=== PATIENT | female | born 1990 | race Caucasian/White ===

== ENCOUNTER 2019-09-29 20:03 | Emergency (ER) | payer SELFPAY ==
--- OUTSIDE RECORDS SUMMARY | 2019-09-29 20:05 | XMS REPORT | Continuity of Care Document ---
:1990 Author Organization [facility] Address [address] [place] [address] Dr. Thakur [address] [place] [id number] Care Team Providers Name Role Phone Unavailable Unavailable Unavailable Problems This patient has no known problems. Allergies, Adverse Reactions, Alerts This patient has no known allergies or adverse reactions. Medications This patient has no known medications. Procedures This patient has no known procedures. Results This patient has no known results.
[2019-09-29 20:50] LABS: Urine Blood NEGATIVE (NEG); Urine Glucose NEGATIVE (NEG); Urine Protein NEGATIVE (NEG)
--- NOTE | 2019-09-29 22:06 | ER ---
Nurse's Notes [facility] Name: Kourtney Dave Age: 29 yrs Sex: Female : 1990 Arrival Date: 09/29/2019 Time: 20:04 Bed 6 Private MD: Diagnosis: Abdominal tenderness;Constipation;Ileus, unspecified Presentation: 09/28 20:12 Chief complaint: Patient states: Had a UTI in July, abx completed. Once completed ca1 started burning again with urination, now on Macrobid. Reports low back pain and constipation. Last good BM x 2 weeks. Feels bloated and c/o abdl pain. Reports nausea. Coronavirus screen: Client denies travel out of the [place] in the last 14 days. At this time, the client does not indicate any symptoms associated with coronavirus-19. Ebola Screen: Patient negative for fever greater than or equal to 101.5 degrees Fahrenheit, and additional compatible Ebola Virus Disease symptoms Patient denies exposure to infectious person. Patient denies travel to an Ebola-affected area in the 21 days before illness onset. No symptoms or risks identified at this time. Initial Sepsis Screen: Does the patient meet any 2 criteria? No. Patient's initial sepsis screen is negative. Does the patient have a suspected source of infection? No. Patient's initial sepsis screen is negative. Risk Assessment: Do you want to hurt yourself or someone else? Patient reports no desire to harm self or others. Onset of symptoms was September 29, 2019. 20:12 Method Of Arrival: Ambulatory ca1 20:12 Acuity: CINDY 3 ca1 Triage Assessment: 20:17 General: Appears in no apparent distress. comfortable, Behavior is calm, cooperative, ca1 appropriate for age. 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 - Social history:: Smoking status: Patient denies any tobacco usage or history of. - Family history:: not pertinent. Screenin:56 Abuse screen: Denies threats or abuse. Nutritional screening: No deficits noted. ea Tuberculosis screening: No symptoms or risk factors identified. Fall Risk None identified. Assessment: 21:55 General: Appears in no apparent distress. Behavior is appropriate for age. Pain: ea Complains of pain in abdomen. Neuro: Level of Consciousness is awake, alert, obeys commands, Oriented to person, place, time, situation. Respiratory: Airway is patent Respiratory effort is even, unlabored, Respiratory pattern is regular, symmetrical. GI: Bowel sounds present X 4 quads. Abd is soft and non tender X 4 quads. Derm: Skin is pink, warm \T\ dry. 23:48 Reassessment: Patient and/or family updated on plan of care and expected duration. Pain ea level reassessed. Patient is alert, oriented x 3, equal unlabored respirations, skin warm/dry/pink. Awaiting on CT results. 23:55 Reassessment: Patient and/or family updated on plan of care and expected duration. Pain ea level reassessed. Patient is alert, oriented x 3, equal unlabored respirations, skin warm/dry/pink. Discharge instruction given to patient, verbalized the understanding of instruction. Pt left ED ambulatory tolerating well. Vital Signs: 20:12 BP 129 / 70; Pulse 104; Resp 17 S; Temp 99.2(O); Pulse Ox 100% on R/A; Weight 78.02 kg ca1 (R); Height 5 ft. 5 in. (165.10 cm) (R); 22:21 BP 111 / 54; Pulse 90; Resp 18; Pulse Ox 99% on R/A; ea 23:30 BP 120 / 62; Pulse 88; Resp 18; Pulse Ox 98% ; ea 20:12 Body Mass Index 28.62 (78.02 kg, 165.10 cm) ca1 ED Course: 20:04 Patient arrived in ED. am2 20:15 Triage completed. ca1 20:16 Arm band placed on right wrist. ca1 20:46 Jose Cruz Herron MD is Attending Physician. miya 21:00 Cathy Cosme, LEANDER is Primary Nurse. ea 21:56 Patient has correct armband on for positive identification. Bed in low position. Call ea light in reach. Side rails up X2. 22:05 Adi Stanley MD is Referral Physician. miya 22:06 Abdomen 1 View (KUB) XRAY In Process Unspecified. EDMS 22:20 Inserted saline lock: 20 gauge in right antecubital area, using aseptic technique. ea Blood collected. 22:48 CT Abd/Pelvis - IV Contrast Only In Process Unspecified. EDMS 23:30 Javier Lopez MD is Referral Physician. [facility] 23:55 No provider procedures requiring assistance completed. IV discontinued, intact, ea bleeding controlled, No redness/swelling at site. Pressure dressing applied. Administered Medications: 22:00 Drug: Lactulose 30 grams Volume: 45 ml; Route: PO; ea 23:56 Follow up: Response: No adverse reaction ea 22:20 Drug: NS 0.9% 1000 ml Route: IV; Rate: 1 bolus; Site: right antecubital; ea 23:56 Follow up: Response: No adverse reaction; IV Status: Completed infusion; IV Intake: ea 1000ml Intake: 23:56 IV: 1000ml; Total: 1000ml. ea Outcome: 22:05 Discharge ordered by . [facility] 23:55 Discharged to home ambulatory. ea 23:55 Condition: stable 23:55 Discharge instructions given to patient, Instructed on discharge instructions, follow up and referral plans. medication usage, Demonstrated understanding of instructions, follow-up care, medications, Prescriptions given X 3. 23:56 Patient left the ED. ea Signatures: Dispatcher [employer] Jose Cruz Severino MD MD cha Moreno, Amanda am2 Cathy Cosme, RN RN Pauline Espinoza RN RN ca1
--- NOTE | 2019-09-29 22:06 | EDPHYS ---
Physician Documentation [facility] Name: Kourtney Dave Age: 29 yrs Sex: Female : 1990 Arrival Date: 09/29/2019 Time: 20:04 Bed 6 Private MD: ED Physician Jose Cruz Herron HPI: 09/28 22:00 This 29 yrs old Female presents to ER via Ambulatory with complaints of miya Urinary Problem, Abdominal Pain, Constipation. 22:00 The patient presents with abdominal pain in the upper abdomen, in the lower abdomen, miya abdominal distention in the upper abdomen, in the lower abdomen. Onset: The symptoms/episode began/occurred 3 week(s) ago. The patient presents with urinary symptoms, frequency. Onset: The symptoms/episode began/occurred 3 week(s) ago. Modifying factors: The symptoms are alleviated by nothing, the symptoms are aggravated by constipation. Associated signs and symptoms: The patient has no apparent associated signs or symptoms. Severity of symptoms: At their worst the symptoms were mild, in the emergency department the symptoms are unchanged. 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 - Social history:: Smoking status: Patient denies any tobacco usage or history of. - Family history:: not pertinent. ROS: 22:00 Constitutional: Negative for fever, chills, and weight loss, Eyes: Negative for injury, miya pain, redness, and discharge, ENT: Negative for injury, pain, and discharge, Neck: Negative for injury, pain, and swelling, Cardiovascular: Negative for chest pain, palpitations, and edema, Respiratory: Negative for shortness of breath, cough, wheezing, and pleuritic chest pain, Back: Negative for injury and pain, : Negative for injury, bleeding, discharge, and swelling, MS/Extremity: Negative for injury and deformity, Skin: Negative for injury, rash, and discoloration, Neuro: Negative for headache, weakness, numbness, tingling, and seizure, Psych: Negative for depression, anxiety, suicide ideation, homicidal ideation, and hallucinations, Allergy/Immunology: Negative for hives, rash, and allergies, Endocrine: Negative for neck swelling, polydipsia, polyuria, polyphagia, and marked weight changes, Hematologic/Lymphatic: Negative for swollen nodes, abnormal bleeding, and unusual bruising. 22:00 Abdomen/GI: Positive for abdominal pain, constipation. Exam: 22:00 Constitutional: This is a well developed, well nourished patient who is awake, alert, miya and in no acute distress. Head/Face: Normocephalic, atraumatic. Eyes: Pupils equal round and reactive to light, extra-ocular motions intact. Lids and lashes normal. Conjunctiva and sclera are non-icteric and not injected. Cornea within normal limits. Periorbital areas with no swelling, redness, or edema. ENT: Nares patent. No nasal discharge, no septal abnormalities noted. Tympanic membranes are normal and external auditory canals are clear. Oropharynx with no redness, swelling, or masses, exudates, or evidence of obstruction, uvula midline. Mucous membranes moist. Neck: Trachea midline, no thyromegaly or masses palpated, and no cervical lymphadenopathy. Supple, full range of motion without nuchal rigidity, or vertebral point tenderness. No Meningismus. Chest/axilla: Normal chest wall appearance and motion. Nontender with no deformity. No lesions are appreciated. Cardiovascular: Regular rate and rhythm with a normal S1 and S2. No gallops, murmurs, or rubs. Normal PMI, no JVD. No pulse deficits. Respiratory: Lungs have equal breath sounds bilaterally, clear to auscultation and percussion. No rales, rhonchi or wheezes noted. No increased work of breathing, no retractions or nasal flaring. Abdomen/GI: Soft, non-tender, with normal bowel sounds. No distension or tympany. No guarding or rebound. No evidence of tenderness throughout. Back: No spinal tenderness. No costovertebral tenderness. Full range of motion. Skin: Warm, dry with normal turgor. Normal color with no rashes, no lesions, and no evidence of cellulitis. MS/ Extremity: Pulses equal, no cyanosis. Neurovascular intact. Full, normal range of motion. Neuro: Awake and alert, GCS 15, oriented to person, place, time, and situation. Cranial nerves II-XII grossly intact. Motor strength 5/5 in all extremities. Sensory grossly intact. Cerebellar exam normal. Normal gait. Psych: Awake, alert, with orientation to person, place and time. Behavior, mood, and affect are within normal limits. 22:00 Musculoskeletal/extremity: DVT Exam: No signs of deep vein thrombosis. no pain, no swelling, no tenderness, negative Homans' sign noted on exam, no appreciated bluish discoloration, no erythema, no increased warmth. Vital Signs: 20:12 BP 129 / 70; Pulse 104; Resp 17 S; Temp 99.2(O); Pulse Ox 100% on R/A; Weight 78.02 kg ca1 (R); Height 5 ft. 5 in. (165.10 cm) (R); 22:21 BP 111 / 54; Pulse 90; Resp 18; Pulse Ox 99% on R/A; ea 23:30 BP 120 / 62; Pulse 88; Resp 18; Pulse Ox 98% ; ea 20:12 Body Mass Index 28.62 (78.02 kg, 165.10 cm) ca1 MDM: 20:46 Patient medically screened. miya 22:02 Data reviewed: vital signs, nurses notes, lab test result(s), urinalysis, radiologic miya studies, plain films. 22:03 Differential diagnosis: nonspecific abdominal pain, urinary tract infection, bowel miya obstruction, Dysmenorrhea, non-specific abd pain. Data interpreted: school lunch monitor: not applicable for this patient encounter. rate is 104 beats/min, Pulse oximetry: on room air is 100 %. Test interpretation: by ED physician or midlevel provider: plain radiologic studies. 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 ED course: ua and kub results explained, pt explained the importance of follow up. 09/28 20:38 Order name: Urine Dipstick--Ancillary (enter results); Complete Time: 21:55 ar5 09/28 20:38 Order name: Urine --Ancillary (enter results); Complete Time: 21:55 ar5 09/28 21:40 Order name: Abdomen 1 View (KUB) XRAY; Complete Time: 23:29 miya 09/28 22:08 Order name: CBC with Diff; Complete Time: 23:29 miya 09/28 22:08 Order name: Comprehensive Metabolic Panel; Complete Time: 23:29 miya 09/28 23:01 Order name: CREATININE WHOLE BLOOD; Complete Time: 23:29 EDMS 09/28 20:43 Order name: Urine Dipstick-Ancillary (obtain specimen); Complete Time: 20:43 ca1 09/28 20:43 Order name: Urine Test (obtain specimen); Complete Time: 20:43 ca1 09/28 22:08 Order name: CT Abd/Pelvis - IV Contrast Only miya Administered Medications: 22:00 Drug: Lactulose 30 grams Volume: 45 ml; Route: PO; ea 23:56 Follow up: Response: No adverse reaction ea 22:20 Drug: NS 0.9% 1000 ml Route: IV; Rate: 1 bolus; Site: right antecubital; ea 23:56 Follow up: Response: No adverse reaction; IV Status: Completed infusion; IV Intake: ea 1000ml Disposition: 09/29/19 22:05 Discharged to Home. Impression: Abdominal tenderness, Constipation, Ileus, unspecified. - Condition is Stable. - Discharge Instructions: Abdominal Pain, Adult, Constipation, Adult, High-Fiber Diet, Constipation, Adult, Xxiu-rx-Klbo, Ileus, Abdominal Pain, Adult, Idch-pe-Xuma, Fiber Content in Foods. - Prescriptions for Bentyl 20 mg Oral Tablet - take 1 tablet by ORAL route every 6 hours As needed; 20 tablet. Lactulose 10 gram/15 mL Oral Solution - take 30 milliliter by ORAL route once daily; 300 milliliter. Zofran 4 mg Oral Tablet - take 1 tablet by ORAL route every 12 hours As needed; 20 tablet. - Medication Reconciliation Form, Thank You Letter, Antibiotic Education, Prescription Opioid Use form. - Follow up: Private Physician; When: 2 - 3 days; Reason: Recheck today's complaints, Re-evaluation by your physician. Follow up: Adi Stanley MD; When: 2 - 3 days; Reason: Recheck today's complaints, Re-evaluation by your physician. Follow up: Javier Lopez MD; When: 2 - 3 days; Reason: Recheck today's complaints, Re-evaluation by your physician. - Problem is new. - Symptoms have improved. Signatures: Dispatcher [employer] EDJose Cruz Iverson MD MD cha Antunez, Elena, RN RN ea Acob, Cheryl, RN RN ca1 Corrections: (The following items were deleted from the chart) 22:05 22:05 09/29/2019 22:05 Discharged to Home. Impression: Abdominal tenderness; miya Constipation. Condition is Stable. Forms are Medication Reconciliation Form, Thank You Letter, Antibiotic Education, Prescription Opioid Use. Follow up: Private Physician; When: 2 - 3 days; Reason: Recheck today's complaints, Re-evaluation by your physician. Problem is new. Symptoms have improved. miya 23:30 22:05 09/29/2019 22:05 Discharged to Home. Impression: Abdominal tenderness; miya Constipation. Condition is Stable. Forms are Medication Reconciliation Form, Thank You Letter, Antibiotic Education, Prescription Opioid Use. Follow up: Private Physician; When: 2 - 3 days; Reason: Recheck today's complaints, Re-evaluation by your physician. Follow up: Adi Stanley; When: 2 - 3 days; Reason: Recheck today's complaints, Re-evaluation by your physician. Problem is new. Symptoms have improved. miya 23:30 23:30 09/29/2019 22:05 Discharged to Home. Impression: Abdominal tenderness; miya Constipation; Ileus, unspecified. Condition is Stable. Discharge Instructions: Abdominal Pain, Adult, Constipation, Adult, Constipation, Adult, Giaa-dg-Fwsz, Abdominal Pain, Adult, Ilvr-el-Djhm, High-Fiber Diet, Fiber Content in Foods. Prescriptions for Bentyl 20 mg Oral Tablet - take 1 tablet by ORAL route every 6 hours As needed; 20 tablet, Lactulose 10 gram/15 mL Oral Solution - take 30 milliliter by ORAL route once daily; 300 milliliter. and Forms are Medication Reconciliation Form, Thank You Letter, Antibiotic Education, Prescription Opioid Use. Follow up: Private Physician; When: 2 - 3 days; Reason: Recheck today's complaints, Re-evaluation by your physician. Follow up: Adi Stanley; When: 2 - 3 days; Reason: Recheck today's complaints, Re-evaluation by your physician. Problem is new. Symptoms have improved. miya 23:56 23:30 09/29/2019 22:05 Discharged to Home. Impression: Abdominal tenderness; ea Constipation; Ileus, unspecified. Condition is Stable. Discharge Instructions: Abdominal Pain, Adult, Constipation, Adult, Constipation, Adult, Ipfv-mu-Mvgw, Abdominal Pain, Adult, Lzft-it-Rgdh, High-Fiber Diet, Fiber Content in Foods. Prescriptions for Bentyl 20 mg Oral Tablet - take 1 tablet by ORAL route every 6 hours As needed; 20 tablet, Lactulose 10 gram/15 mL Oral Solution - take 30 milliliter by ORAL route once daily; 300 milliliter. and Forms are Medication Reconciliation Form, Thank You Letter, Antibiotic Education, Prescription Opioid Use. Follow up: Private Physician; When: 2 - 3 days; Reason: Recheck today's complaints, Re-evaluation by your physician. Follow up: Adi Stanley; When: 2 - 3 days; Reason: Recheck today's complaints, Re-evaluation by your physician. Follow up: Javier Lopez; When: 2 - 3 days; Reason: Recheck today's complaints, Re-evaluation by your physician. Problem is new. Symptoms have improved. miya
[2019-09-29] MEDS ORDERED: LACTULOSE 20 GM/30 ML UCUP ONE (22:09)
[2019-09-29] MEDS ORDERED: NA CHLORIDE 0.9% 1,000 ML ONE (22:28)
--- NOTE | 2019-09-29 22:35 | RAD REPORT ---
EXAM DESCRIPTION: RAD - Abdomen 1 View (KUB) - 09/29/2019 10:05 pm CLINICAL HISTORY: ABD PAIN Pain COMPARISON: Abdomen Pelvis W Contrast dated 09/29/2019 FINDINGS: The bowel gas pattern is non-obstructive. No evidence of free air or pneumatosis. No suspi cious calcifications. No significant bony findings. Prominent fecal retention noted. IMPRESSION: Prominent fecal retention.
[2019-09-29 22:41] LABS: Absolute Lymphocytes (CBC) 2.1 K/uL (0.7-4.9); Basophils % 0.6 % (0-1.3); Hematocrit 38.7 % (36.0-45.0); MPV 9.5 fL (7.6-11.3); RBC Red Blood Cell Count 4.67 M/uL (3.86-4.86)
[2019-09-29 22:50] LABS: ALT/SGPT 19 U/L (12-78); AST/SGOT 12 U/L (15-37); Albumin 3.8 g/dL (3.4-5.0); Alkaline Phosphatase 88 U/L (45-117); BUN Blood Urea Nitrogen 11 mg/dL (7-18); Bicarbonate 29 mmol/L (21-32); Bilirubin Total 0.5 mg/dL (0.2-1.0); Glucose Level 86 mg/dL (74-106); Potassium 3.8 mmol/L (3.5-5.1); Protein, Total 7.8 g/dL (6.4-8.2); Sodium Level 140 mmol/L (136-145)
[2019-09-30 00:38] VITALS: TEMP 99.2
[2019-09-30 00:41] VITALS: BP 120/62; O2SAT 98
--- NOTE | 2019-10-01 09:01 | RAD REPORT ---
EXAM DESCRIPTION: CT ABDOMEN AND PELVIS WITH CONTRAST CLINICAL HISTORY: Lower abdominal pain. Constipation. Burning with urination. COMPARISON: None Available. TECHNIQUE: CT of the abdomen and pelvis performed following IV administration of iodinated contras t.. FINDINGS: Lung Bases: The visualized lung bases are clear. Bones: No destructive bone lesions identified. Abdomen: Liver: The liver has normal size and density. No intrahepatic biliary dilatation. Gallbladder: No calcified gallstones. Spleen, Pancreas, and Adrenal Glands: The spleen, pancreas, and adrenal glands are unremarkable. Kidneys: No hydronephrosis or obstructing calculus. Vasculature: The aorta and IVC have normal caliber and position. The portal vein is patent. The pro ximal visceral and renal arteries are patent. Stomach: The stomach and duodenum have normal course. Other: No free intraperitoneal air. No free fluid or lymphadenopathy. Small fat-containing umbili liz hernia. Pelvis: Bladder: Urinary bladder is unremarkable. Bowel: Mild prominence of proximal small bowel with mild distal decompression and no definite trans ition point. Appendix: Normal appendix. Pelvis: Uterus is not enlarged. IMPRESSION: 1. Mildly prominent loops of proximal small bowel without definite transition point. Fin dings most compatible with ileus/enteritis. This exam was performed according to our departmental dose-optimization program, which includes autom ated exposure control, adjustment of the mA and/or kV according to patient size and/or use of iterati ve reconstruction technique. Electronically signed by: Ryan Luis 09/29/2019 11:02 PM CDT Due to temporary technical issues with the PACS/Fluency reporting system, reports are being signed by the in house radiologist without review as a courtesy to ensure prompt reporting. The interpreting r adiologist is fully responsible for the content of the report.
== END 2019-09-29 23:56 | disposition home or self-care (01) ==
LOC: ER 20:03
DX: K59.00 Constipation, unspecified (principal); K56.7 Ileus, unspecified
CPT/HCPCS: 36415; 74018; 74177; 80053; 81003; 81025; 82565; 85025; J7030; Q9967

== ENCOUNTER 2021-08-20 13:48 | Emergency (ER) | payer SELFPAY ==
--- NOTE | 2021-08-20 15:26 | ER ---
Nurse's Notes [facility] Name: Kourtney Dave Age: 31 yrs Sex: Female : 1990 Arrival Date: 08/20/2021 Time: 13:50 Bed 11 Private MD: Diagnosis: Acute tonsillitis, unspecified Presentation: 08/20 13:56 Chief complaint: Patient states: I have been feeling sick for the past 4 days, sore jg9 throat 7/10 and body aches-sick child in the home reported, at home covid test were negative, and I have a sore throat. Patient reports she took DayQuil and ibuprofen around 1200pm today. Chief complaint:. Coronavirus screen: Vaccine status: Patient reports receiving the 1st dose of the Covid vaccine. Ebola Screen: Patient negative for fever greater than or equal to 101.5 degrees Fahrenheit, and additional compatible Ebola Virus Disease symptoms Patient denies exposure to infectious person. Patient denies travel to an Ebola-affected area in the 21 days before illness onset. Initial Sepsis Screen: Does the patient meet any 2 criteria? No. Patient's initial sepsis screen is negative. Does the patient have a suspected source of infection? No. Patient's initial sepsis screen is negative. Risk Assessment: Do you want to hurt yourself or someone else? Patient reports no desire to harm self or others. Onset of symptoms is unknown. 13:56 Method Of Arrival: Ambulatory [facility] 13:56 Acuity: CINDY 4 j9 Triage Assessment: 14:02 General: Appears in no apparent distress. Behavior is calm, cooperative. Pain: j9 Complains of pain in neck-sore throat Pain does not radiate. Pain currently is 7 out of 10 on a pain scale. EENT: Reports sore throat. Musculoskeletal: Reports body aches on and off. 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 - Social history:: Smoking status: Patient denies any tobacco usage or history of. Screenin:03 Abuse screen: Denies threats or abuse. Denies injuries from another. Nutritional jg9 screening: No deficits noted. Tuberculosis screening: No symptoms or risk factors identified. Fall Risk None identified. Assessment: 14:03 Respiratory: Airway is patent Respiratory effort is even, unlabored, Breath sounds are jg9 clear bilaterally. EENT: Throat is reddened. 15:18 Reassessment: No changes from previously documented assessment. Patient and/or family jg9 updated on plan of care and expected duration. Pain level reassessed. Patient is alert, oriented x 3, equal unlabored respirations, skin warm/dry/pink. Vital Signs: 13:56 BP 128 / 54; Pulse 99; Resp 16 S; Temp 98.7(O); Pulse Ox 99% ; Weight 72.57 kg (R); jg9 Height 5 ft. 5 in. (165.10 cm); Pain 7/10; 15:15 BP 106 / 61; Pulse 84; Resp 12 S; Pulse Ox 100% on R/A; jg9 13:56 Body Mass Index 26.62 (72.57 kg, 165.10 cm) jg9 ED Course: 13:50 Patient arrived in ED. as 13:50 Izabel Ospina, LEANDER is Primary Nurse. jg9 13:52 Whit Jin FNP-C [facility]. kb 13:52 Garrett Coffey MD is Attending Physician. kb 14:01 Triage completed. jg9 14:04 Arm band placed on right wrist. jg9 14:04 Patient has correct armband on for positive identification. Bed in low position. Call jg9 light in reach. 15:18 No apparent distress. Resting quietly. Awaiting lab results. jg9 15:33 No provider procedures requiring assistance completed. jg9 15:33 Patient did not have IV access during this emergency room visit. jg9 Administered Medications: No medications were administered Medication: 15:33 VIS not applicable for this client. jg9 Outcome: 15:26 Discharge ordered by . kb 15:33 Discharged to home ambulatory. jg9 15:33 Condition: unchanged 15:33 Discharge instructions given to patient, Instructed on discharge instructions, follow up and referral plans. Demonstrated understanding of instructions, follow-up care. 15:33 Prescriptions given X 1. jg9 15:34 Patient left the ED. jg9 Signatures: Whit Jin FNP-C FNP-Kendal Webster Jennifer, RN RN jg9
--- NOTE | 2021-08-20 15:27 | EDPHYS ---
Physician Documentation [facility] Name: Kourtney Dave Age: 31 yrs Sex: Female : 1990 Arrival Date: 08/20/2021 Time: 13:50 Bed 11 Private MD: ED Physician Garrett Coffey HPI: 08/20 15:38 This 31 yrs old Female presents to ER via Ambulatory with complaints of Sore Throat, kb Fever, Pain All Over. 15:38 The patient presents with sore throat. The patient describes throat pain as constant. kb Onset: The symptoms/episode began/occurred 4 day(s) ago. Severity of symptoms: At their worst the symptoms were moderate, in the emergency department the symptoms are unchanged. Modifying factors: The symptoms are alleviated by nothing, the symptoms are aggravated by swallowing. Associated signs and symptoms: Pertinent positives: fever, flu-like symptoms, myalgias, Sore throat. The patient has not experienced similar symptoms in the past. The patient has not recently seen a physician. 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 - Social history:: Smoking status: Patient denies any tobacco usage or history of. ROS: 15:37 Respiratory: Negative for shortness of breath, cough, wheezing, and pleuritic chest kb pain. 15:37 Constitutional: Positive for body aches, chills, fatigue, fever, malaise. 15:37 ENT: Positive for sore throat. 15:37 All other systems are negative. Exam: 15:37 Constitutional: This is a well developed, well nourished patient who is awake, alert, kb and in no acute distress. Head/Face: Normocephalic, atraumatic. Cardiovascular: Regular rate and rhythm with a normal S1 and S2. No gallops, murmurs, or rubs. No pulse deficits. Respiratory: Respirations even and unlabored. No increased work of breathing. Talking in full sentences Skin: Warm, dry with normal turgor. Normal color. MS/ Extremity: Pulses equal, no cyanosis. Neurovascular intact. Full, normal range of motion. Neuro: Awake and alert, GCS 15, oriented to person, place, time, and situation. Moves all extremities. Normal gait. Psych: Awake, alert, with orientation to person, place and time. Behavior, mood, and affect are within normal limits. 15:37 ENT: Posterior pharynx: Airway: normal, Tonsils: bilaterally enlarged, with erythema, with exudate, Uvula: normal, midline, swelling, that is mild, erythema, that is moderate, exudate, that is moderate. Vital Signs: 13:56 BP 128 / 54; Pulse 99; Resp 16 S; Temp 98.7(O); Pulse Ox 99% ; Weight 72.57 kg (R); jg9 Height 5 ft. 5 in. (165.10 cm); Pain 7/10; 15:15 BP 106 / 61; Pulse 84; Resp 12 S; Pulse Ox 100% on R/A; jg9 13:56 Body Mass Index 26.62 (72.57 kg, 165.10 cm) 9 MDM: 13:52 Patient medically screened. kb 15:20 Data reviewed: vital signs, nurses notes. Data interpreted: Pulse oximetry: on room air kb is 100 %. Interpretation: normal. Counseling: I had a detailed discussion with the patient and/or guardian regarding: the historical points, exam findings, and any diagnostic results supporting the discharge/admit diagnosis, lab results, the need for outpatient follow up, a family practitioner, to return to the emergency department if symptoms worsen or persist or if there are any questions or concerns that arise at home. 08/20 13:56 Order name: Flu; Complete Time: 14:49 kb 08/20 13:56 Order name: Strep; Complete Time: 14:33 kb 08/20 13:56 Order name: COVID-19 SARS RT PCR (Document "Date of Onset" if Symptomatic); Complete kb Time: 15:20 08/20 14:35 Order name: Throat Culture EDMS Administered Medications: No medications were administered Disposition: 18:03 Co-signature as Attending Physician, Garrett Coffey MD. rn Disposition Summary: 08/20/21 15:26 Discharge Ordered Location: Home kb Condition: Stable kb Diagnosis - Acute tonsillitis, unspecified kb Followup: kb - With: Emergency Department - When: As needed - Reason: Worsening of condition Followup: kb - With: Private Physician - When: 2 - 3 days - Reason: Recheck today's complaints, Continuance of care, Re-evaluation by your physician Discharge Instructions: - Discharge Summary Sheet kb - Tonsillitis, [id number] kb Forms: - Medication Reconciliation Form kb - Thank You Letter kb - Antibiotic Education kb - Prescription Opioid Use kb Prescriptions: - Augmentin 875-125 mg Oral Tablet - take 1 tablet by ORAL route every 12 hours for 10 days; 20 tablet; Refills: 0, kb Product Selection Permitted Signatures: Dispatcher [employer] EDMS Whit Jin, ABUNDIO RAZO-Garrett Lopez MD MD rn Gilmore, Jennifer, RN RN jg9
[2021-08-20 15:41] VITALS: TEMP 98.7
[2021-08-20 15:42] VITALS: BP 106/61; O2SAT 100
== END 2021-08-20 15:34 | disposition home or self-care (01) ==
LOC: ER 13:48
DX: J03.90 Acute tonsillitis, unspecified (principal); Z91.048 Other nonmedicinal substance allergy status
CPT/HCPCS: 87070; 87081; 87804; 99282; U0003

== ENCOUNTER 2023-11-26 11:48 | Emergency (ER) | payer SELFPAY ==
--- NOTE | 2023-11-26 13:45 | EDPHYS ---
Physician Documentation [facility] Name: Kourtney Dave Age: 33 yrs Sex: Female : 1990 Arrival Date: 11/26/2023 Time: 11:48 Bed 23 Private MD: ED Physician Ean Alberto HPI: 11/25 15:58 This 33 yrs old Female presents to ER via Ambulatory with complaints of Ear Pain. kb 15:58 Pt is a 33 year old female who presents for bilateral ear pain that started one week kb ago. States she was seen at [facility] ER 4 days ago and told to take mucinex D. States she has been taking that, but the pain now radiates to throat. Denies fever. 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 - Infectious Disease History:: Denies. - Social history:: Smoking status: Reported history of juuling and/or vaping. Patient uses alcohol, occasionally. ROS: 15:57 Constitutional: As per HPI kb Exam: 15:57 Constitutional: This is a well developed, well nourished patient who is awake, alert, kb and in no acute distress. Head/Face: Normocephalic, atraumatic. Cardiovascular: Regular rate Respiratory: Respirations even and unlabored. No increased work of breathing. Talking in full sentences Abdomen/GI: Soft, non-tender. No distention Skin: Warm, dry with normal turgor. Normal color. MS/ Extremity: Pulses equal, no cyanosis. Neurovascular intact. Full, normal range of motion. Neuro: Awake and alert, GCS 15, oriented to person, place, time, and situation. Moves all extremities. Normal gait. 15:57 ENT: Ear canal(s): purulent discharge, that is minimal, bilaterally, swelling, that is moderate, bilaterally, TM's: are normal, Posterior pharynx: erythema, that is mild, Vital Signs: 11:55 BP 126 / 74; Pulse 107; Resp 17; Temp 98.8; Pulse Ox 100% on R/A; MAP 88 mmHg; Weight tm6 72.57 kg; Height 5 ft. 5 in. ; Pain 5/10; 11:56 Pain 5/10; tm6 12:30 BP 118 / 82; Pulse 92; Resp 16; Pulse Ox 100% ; me1 13:00 BP 133 / 95; Pulse 95; Resp 16; Pulse Ox 100% ; me1 13:48 BP 124 / 67; Pulse 88; Resp 16; Temp 98.4; Pulse Ox 100% ; me1 11:55 Body Mass Index 26.63 (72.57 kg, 165.1 cm) tm6 11:55 Pain Scale: Adult tm6 11:56 Pain Scale: Adult tm6 MDM: 11:51 Medical Screening Exam initiated kb 15:57 Differential diagnosis: otitis media, otitis externa, ruptured TM, foreign body, acute kb otalgia. Data reviewed: vital signs, nurses notes. Counseling: I had a detailed discussion with the patient and/or guardian regarding the historical points, exam findings, and any diagnostic results supporting the discharge/admit diagnosis, lab results, the need for outpatient follow up, a family practitioner, to return to the emergency department if symptoms worsen or persist or if there are any questions or concerns that arise at home. 11/25 11:54 Order name: Strep kb 11/25 12:18 Order name: Throat Culture EDMS Administered Medications: No medications were administered Disposition Summary: 11/26/23 13:45 Discharge Ordered Notes: Location: Home kb Condition: Stable kb Diagnosis - Other otitis externa, left ear kb - Other otitis externa, right ear kb Followup: kb - With: Emergency Department - When: As needed - Reason: Worsening of condition Followup: kb - With: Private Physician - When: 2 - 3 days - Reason: Recheck today's complaints, Continuance of care, Re-evaluation by your physician Discharge Instructions: - Discharge Summary Sheet kb - Otitis Externa, [id number] kb - Ear Drops, Adult, [id number] kb Forms: - Medication Reconciliation Form kb - Antibiotic Education kb - Prescription Opioid Use kb - Patient Portal Instructions kb - Leadership Thank You Letter kb Prescriptions: - Ciprodex 0.3-0.1 % Otic drops, suspension - instill 4 drops OTIC route every 12 hours for 7 days , for ears ONLY; 1 kb Unspecified; Refills: 0, Product Selection Permitted Addendum: 11/27/2023 18:02 I was immediately available for consultation during this patient's visit. I did not e c2 personally see the patient or discuss the patient with the GEMINI. . Signatures: Dispatcher [employer] Whit Luciano, AVIONICS ELECTRONICS TECHNICIAN-C AVIONICS ELECTRONICS TECHNICIAN-CkEan Alejo MD MD ec2 Ronald Deleon RN RN tm6 Corrections: (The following items were deleted from the chart) 11/25 11:55 11:55 Group A Streptococcus Rapid [id number] ordered. LANIE DELA CRUZ
--- NOTE | 2023-11-26 13:45 | ER ---
Nurse's Notes [facility] Name: Kourtney Dave Age: 33 yrs Sex: Female : 1990 Arrival Date: 11/26/2023 Time: 11:48 Bed 23 Private MD: Diagnosis: Other otitis externa, left ear;Other otitis externa, right ear Presentation: 11/25 11:52 Chief complaint: Patient states: about a week ago my ears started to feel like they tm6 were getting infected, like they were swelling or about to explode. I went to the [place] ED Sunday and they told me to take Mucinex D. It has helped a little but now my throat is hurting and swollen. Coronavirus screen: Client denies travel out of the [place] in the last 14 days. Ebola Screen: Patient negative for fever greater than or equal to 101.5 degrees Fahrenheit, and additional compatible Ebola Virus Disease symptoms Patient denies exposure to infectious person. Patient denies travel to an Ebola-affected area in the 21 days before illness onset. No symptoms or risks identified at this time. Initial Sepsis Screen: Does the patient meet any 2 criteria? No. Patient's initial sepsis screen is negative. Does the patient have a suspected source of infection? No. Patient's initial sepsis screen is negative. Risk Assessment: Do you want to hurt yourself or someone else? Patient reports no desire to harm self or others. Onset of symptoms was November 19, 2023. 11:52 Method Of Arrival: Ambulatory tm6 11:52 Acuity: CINDY 4 tm6 Triage Assessment: 11:56 General: Appears in no apparent distress. Behavior is calm, cooperative. Pain: tm6 Complains of pain in right ear and left ear Pain currently is 5 out of 10 on a pain scale. EENT: Reports pain in right ear and left ear, throat. Neuro: Level of Consciousness is awake, alert, obeys commands, Oriented to person, place, time, situation. Cardiovascular: Patient's skin is warm and dry. Respiratory: Airway is patent Respiratory effort is even, unlabored, Respiratory pattern is regular, symmetrical. GI: No signs and/or symptoms were reported involving the gastrointestinal system. Abdomen is flat, non-distended. : No signs and/or symptoms were reported regarding the genitourinary system. Derm: No signs and/or symptoms reported regarding the dermatologic system. Musculoskeletal: No signs and/or symptoms reported regarding the musculoskeletal system. 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 - Infectious Disease History:: Denies. - Social history:: Smoking status: Reported history of juuling and/or vaping. Patient uses alcohol, occasionally. Screenin:[address] [facility] ED Fall Risk Assessment (Adult) History of falling in the last 3 months, me1 including since admission No falls in past 3 months (0 pts) Confusion or Disorientation No (0 pts) Intoxicated or Sedated No (0 pts) Impaired Gait No (0 pts) Mobility Assist Device Used No (0 pt) Altered Elimination No (0 pt) Score/Fall Risk Level 0 - 2 = Low Risk Maintained a safe environment, Provided non-skid footwear, Hourly rounding (assess needs \T\ fall precautionary measures) done. Abuse screen: Denies threats or abuse. Nutritional screening: No deficits noted. Tuberculosis screening: No symptoms or risk factors identified. Assessment: 12:16 General: Appears uncomfortable, ill, well groomed, well developed, well nourished, me1 Behavior is calm, cooperative, appropriate for age, Reports about a week ago my ears started to feel like they were getting infected, like they were swelling or about to explode. I went to the [facility] ED Y[place] and they told me to take Mucinex D. It has helped a little but now my throat is hurting and swollen. 12:18 Pain: Complains of pain in left ear and right ear, throat Pain does not radiate. Pain me1 currently is 7 out of 10 on a pain scale. Quality of pain is described as pressure, tender, Pain began gradually, Is continuous. Neuro: Level of Consciousness is awake, alert, obeys commands, Oriented to person, place, time, situation, Appropriate for age. Cardiovascular: Patient's skin is warm and dry. Respiratory: Airway is patent Respiratory effort is even, unlabored, Respiratory pattern is regular, symmetrical. GI: No signs and/or symptoms were reported involving the gastrointestinal system. : No signs and/or symptoms were reported regarding the genitourinary system. EENT: Reports pain in left ear and right ear and throat when swallowing Pain is 7 out of 10 on a pain scale. Derm: Skin is intact, is healthy with good turgor, Skin is pink, warm \T\ dry. Musculoskeletal: No signs and/or symptoms reported regarding the musculoskeletal system. Vital Signs: 11:55 BP 126 / 74; Pulse 107; Resp 17; Temp 98.8; Pulse Ox 100% on R/A; MAP 88 mmHg; Weight tm6 72.57 kg; Height 5 ft. 5 in. ; Pain 5/10; 11:56 Pain 5/10; tm6 12:30 BP 118 / 82; Pulse 92; Resp 16; Pulse Ox 100% ; me1 13:00 BP 133 / 95; Pulse 95; Resp 16; Pulse Ox 100% ; me1 13:48 BP 124 / 67; Pulse 88; Resp 16; Temp 98.4; Pulse Ox 100% ; me1 11:55 Body Mass Index 26.63 (72.57 kg, 165.1 cm) tm6 11:55 Pain Scale: Adult tm6 11:56 Pain Scale: Adult tm6 ED Course: 11:51 Patient arrived in ED. ec2 11:51 Whit Jin [facility]-C [facility]. kb 11:51 Ean Alberto MD is Attending Physician. kb 11:54 Triage completed. tm6 11:56 Arm band placed on right wrist. tm6 11:59 Strep Sent. tm6 12:09 More Marcum, LEANDER is Primary Nurse. me1 12:18 Patient has correct armband on for positive identification. Bed in low position. Call me1 light in reach. Side rails up X2. Provided Education on: POC. Verbalized understanding. . Client placed on continuous cardiac and pulse oximetry monitoring. NIBP monitoring applied. Pulse ox on. NIBP on. 12:18 No provider procedures requiring assistance completed. Patient did not have IV access me1 during this emergency room visit. Administered Medications: No medications were administered Medication: 12:18 VIS not applicable for this client. me1 Outcome: 13:45 Discharge ordered by . kb 13:54 Discharged to home ambulatory, me1 13:54 Condition: stable 13:54 Discharge instructions given to patient, Instructed on discharge instructions, follow up and referral plans. medication usage, Demonstrated understanding of instructions, follow-up care, medications, Prescriptions given X 1, 13:54 Patient left the ED. me1 Signatures: Whit Jin, DANNI-Ewelina GALEP-More Singleton RN RN me1 Ean Alberto MD MD ec2 Roanld Deleon RN RN tm6 Corrections: (The following items were deleted from the chart) 12:18 11:52 Chief complaint: Patient states: about a week ago my ears started to feel like me1 they were getting infected, like they were swelling or about to explode. I went to the [facility] ED Sunday and they told me to take Mucinex D. It has helped a little but now my throat is hurting and swollen tm6 12:20 12:16 General: Appears uncomfortable, ill, well groomed, well developed, well me1 nourished, Behavior is calm, cooperative, appropriate for age, Reports me1
[2023-11-26 15:14] VITALS: O2SAT 100
[2023-11-26 15:21] VITALS: BP 124/67; TEMP 98.4
== END 2023-11-26 13:54 | disposition home or self-care (01) ==
LOC: ER 11:48
DX: H60.8X3 Other otitis externa, bilateral (principal)
CPT/HCPCS: 87070; 87081